=== PATIENT | male | born 2000 | race Caucasian/White ===

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

== ENCOUNTER 2020-03-28 09:13 | Emergency (ER) | payer MEDICAID ==
[~2020-03-28] VITALS: Ht 180.3 cm; Wt 102.1 kg
[2020-03-28 09:27] VITALS: Ht 180.3 cm; Wt 102.1 kg
[2020-03-28 13:07] VITALS: BP 120/69
== END 2020-03-28 13:07 | disposition home or self-care (01) ==
LOC: ED 09:13
DX: R51 Headache (principal)
CPT/HCPCS: J0780; Q0163